=== PATIENT | male | born 1990 | race Caucasian/White ===

== ENCOUNTER 2017-01-05 10:58 | Emergency (ER) | payer OTHER ==
[2017-01-05] MEDS ORDERED: DIPH/PERTUSS(ACELL)/TETANUS VAC/PF 0.5 ML SYR (>=10YO) IM ONE (11:32)
[2017-01-05] MEDS ORDERED: LIDOCAINE 1% INJ-PF (10 MG/ML) 30 ML SDV INJ ONE (11:33)
[2017-01-05] MEDS ORDERED: ONDANSETRON 4 MG TAB.RAPDIS PO ONE (11:36)
--- NOTE | 2017-01-05 11:37 | ER Document Report ---
ED Wound - General Chief Complaint: Laceration Stated Complaint: WRIST LACERATION Time Seen by Provider: 01/05/17 11:25 Mode of Arrival: Ambulatory Information source: Patient TRAVEL OUTSIDE OF THE [place] IN LAST 30 DAYS: No - HPI Patient complains to provider of: Laceration Occurred: Just prior to arrival Quality of pain: Achy Severity: Mild Pain Level: 2 Context: Injury Skin Temperature: Warm Skin Color: Normal Capillary refill: < 3 seconds Sensations intact: Yes Distal pulses present: Yes Associated Symptoms: Bleeding Notes: The patient states he was cutting a strap at work with a cook box filler and slipped and accidentally punctured his left wrist with his cook box filler. States that the wound bled somewhat initially. This was easily stopped with pressure. He denies any numbness, tingling, weakness. He denies any pulsatile blood flow. He denies any fevers. He is unsure when his last tetanus was. He denies this being a suicide attempt or any suicidal or homicidal ideation. He states that this was simply an accident. - Related Data Allergies/Adverse Reactions: No Known Allergies Allergy (Unverified 01/05/17 11:30) Past Medical History - Social History Smoking Status: Current Every Day Smoker Frequency of alcohol use: Occasional Family History: Reviewed & Not Pertinent Patient has suicidal ideation: No Patient has homicidal ideation: No Renal/ Medical History: Denies: Hx Peritoneal Dialysis Past Surgical History: Reports: Hx Orthopedic Surgery - RIGHT KNEE - Immunizations Hx Diphtheria, Pertussis, Tetanus Vaccination: Yes Review of Systems - Review of Systems -: Yes All other systems reviewed and negative Physical Exam - Vital signs Vitals: Temp Pulse Resp Pulse Ox 98.6 F 90 16 96 01/05/17 11:07 01/05/17 11:07 01/05/17 11:07 01/05/17 11:07 - Notes Notes: GENERAL: alert, cooperative, nontoxic, no distress. HEAD: normocephalic, atraumatic EYES: conjunctiva pink without discharge, no external redness or swelling. EARS: no external swelling, no external redness NOSE: atraumatic, no external swelling MOUTH/THROAT: mucous membranes moist and pink NECK: soft, supple, full range of motion, no meningismus. CHEST: no distress, lungs clear and equal throughout. No wheezing, rales, rhonchi. CARDIAC: regular rate and rhythm, no murmur, normal capillary refill, normal pulses. BACK: full range of motion, no CVA tenderness. EXTREMITIES: full range of motion of all extremities. No redness, no swelling. NEURO: alert and oriented 3, no focal deficits, full range of motion of all extremities. PYSCH: appropriate mood, affect. Patient is cooperative. SKIN: pink, warm, dry, no rash. 2 cm laceration to the left wrist distal radial area. No pulsatile blood flow noted. Normal radial pulse. Normal cap refill and sensation to the hand. Full range of motion of the fingers in the hand. Course - Re-evaluation Re-evalutation: 01/05/17 12:19 Patient is nontoxic appearing with stable vitals. He has a 2 Jhonathan laceration to the left wrist. This is near the radial artery but does not involve the radial artery. There is no pulsatile flow. No tendon laceration. No foreign body. Normal cap refill and sensation. Patient will be discharged home with instructions on wound care. Follow-up in 10-12 days for suture removal. Follow -up sooner for increased pain, fever, numbness, tingling, weakness, any further concerns. The patient is noted to have elevated blood pressure during today's emergency department visit. The patient was informed of this finding. The patient was instructed that this may be related to pre-hypertension and requires further evaluation with a primary care provider. The patient has no hypertensive symptoms at this time. - Vital Signs Vital signs: Temp Pulse Resp BP Pulse Ox 98.6 F 90 16 96 01/05/17 11:07 01/05/17 11:07 01/05/17 11:07 01/05/17 11:07 Procedures - Laceration/Wound Repair Left wrist Wound length (cm): 2 Wound's Depth, Shape: Superficial, Linear Laceration pre-procedure: Chloraprep applied, Sterile drapes applied Anesthetic type: 1% Lidocaine Wound explored: Clean Irrigated w/ Saline (mLs): 20 Wound Repaired With: Sutures Suture Size/Type: 5:0, Nylon Number of Sutures: 3 Layer Closure?: No Post-procedure NV exam normal: Yes Complications: No Discharge - Discharge Clinical Impression: Laceration of left wrist without complication Qualifiers: Encounter type: initial encounter Qualified Code(s): S61.512A - Laceration without foreign body of left wrist, initial encounter Condition: Stable Disposition: HOME, SELF-CARE Instructions: Laceration Care ([facility]), Tetanus Immunization Given ([facility]) Additional Instructions: Keep wound clean and dry. Follow-up in 10-12 days for suture removal. Follow- up sooner for increased pain, fever, redness, drainage, numbness, tingling, weakness, any further concerns. Your blood pressure was elevated during today's visit. Have this rechecked with your doctor. Forms: Return to Work
[2017-01-05] MEDS ORDERED: IBUPROFEN 600 MG TABLET PO ONE (12:27)
[2017-01-05 12:43] VITALS: BP 132/87
== END 2017-01-05 12:34 | disposition home or self-care (01) ==
LOC: ER 10:58
PROC: 0HQEXZZ Repair Left Lower Arm Skin, External Approach (ICD-10-PCS; principal; 2017-01-05)
DX: S61.512A Laceration without foreign body of left wrist, initial encounter (principal); W45.8XXA Other foreign body or object entering through skin, initial encounter; Y93.89 Activity, other specified; Y99.0 Civilian activity done for income or pay; F17.200 Nicotine dependence, unspecified, uncomplicated; R03.0 Elevated blood-pressure reading, without diagnosis of hypertension
CPT/HCPCS: 99282; 90471; 90715; 12001; S0119; J3490

== ENCOUNTER 2017-01-16 08:45 | Emergency (ER) | payer OTHER ==
[2017-01-16 08:51] VITALS: BP 151/77
--- NOTE | 2017-01-16 09:02 | ER Document Report ---
HPI - HPI Patient complains to provider of: suture removal Onset: Other - 9 days Pain Level: 1 Context: 26-year-old male has 3 sutures in the volar aspect of the left wrist that were placed 9 days ago. Mildly sore. Associated Symptoms: None Exacerbated by: Denies Relieved by: Denies Similar symptoms previously: No Recently seen / treated by doctor: No - ROS ROS below otherwise negative: Yes Systems Reviewed and Negative: Yes All other systems reviewed and negative - DERM Skin Color: Normal Past Medical History - General Information source: Patient - Social History Smoking Status: Current Every Day Smoker Frequency of alcohol use: Social Drug Abuse: None Lives with: Family Family History: Reviewed & Not Pertinent - Medical History Medical History: Negative Renal/ Medical History: Denies: Hx Peritoneal Dialysis Past Surgical History: Reports: Hx Orthopedic Surgery - RIGHT KNEE - Immunizations Hx Diphtheria, Pertussis, Tetanus Vaccination: Yes Vertical Provider Document - CONSTITUTIONAL Agree With Documented VS: Yes Exam Limitations: No Limitations - INFECTION CONTROL TRAVEL OUTSIDE OF THE [place] IN LAST 30 DAYS: No - HEENT HEENT: Normocephalic - NECK Neck: Supple - RESPIRATORY O2 Sat by Pulse Oximetry: 97 - MUSCULOSKELETAL/EXTREMETIES Musculoskeletal/Extremeties: ASAD CHRISTENSEN - NEURO Level of Consciousness: Awake, Alert, Appropriate - DERM Integumentary: Laceration - Inflamed volar distal left wrist sutured wound, 3 sutures removed. Course - Vital Signs Vital signs: Temp Pulse Resp BP Pulse Ox 98.1 F 82 16 151/77 H 97 01/16/17 08:49 01/16/17 08:49 01/16/17 08:49 01/16/17 08:49 01/16/17 08:49 Discharge - Discharge Clinical Impression: Visit for suture removal Condition: Good Disposition: HOME, SELF-CARE Instructions: Suture Removal Additional Instructions: moisturize wound to er any concerns Please complete the patient satisfaction survey if you get one, and return it.. If you do not receive a survey, then you can go to the [facility] website, [email or web address] and place your comments about your very good care. Thank you very much. It was a pleasure being your medical provider today.
== END 2017-01-16 09:08 | disposition home or self-care (01) ==
LOC: ER 08:45
DX: S61.512D Laceration without foreign body of left wrist, subsequent encounter (principal); X58.XXXD Exposure to other specified factors, subsequent encounter; F17.200 Nicotine dependence, unspecified, uncomplicated